=== PATIENT | male | born 1980 | race Hispanic/Latino ===

== ENCOUNTER → 2019-01-23 | Day surgery (SDC) | payer BC ==
[2019-01-20 16:05] LABS: ANION GAP 12.8 mmol/L (8-16); BLOOD UREA NITROGEN 16 mg/dL (7-26); BUN/CREATININE RATIO 20 (6-25); CALCIUM 9.1 mg/dL (8.4-10.2); CARBON DIOXIDE 22 mmol/L (22-29); CHLORIDE 106 mmol/L (98-107); EST GLOMERULAR FILTRATION RATE > 60 ML/MIN (60-); GLUCOSE 213 mg/dL (74-118); POTASSIUM 3.8 mmol/L (3.5-5.1); SODIUM 137 mmol/L (136-145)
[~2019-01-23] MED LIST: ACETAMINOPHEN/CODEINE 300MG - 30MG TAB ONE; ASA325 PO; BACITRACIN ZINC 15 GM OINT ONE; BUPIVACAINE 0.25% 30ML SDV INJ ONE; CEFAZOLIN SOD 1 GM/NS 50ML 50 ML IV ONE; DEXAMETHASONE SOD PHOS INJ 4 MG/ML VIAL ONE; FENTANYL CITRATE/PF 100MCG/2 ML INJ ONE; JANUVIA100 MG PO; KETOROLAC TROMETHAMINE 30 MG/ML VIAL ONE; LEVP SQ; LIDOCAINE HCL 2% LOCAL INJ 5 ML SDV VIAL INJ ONE; LSNP2.5 PO; METFORMIN HCL500 MG PO; MIDAZOLAM HCL 2 MG/2 ML VIAL ONE; NORCO 5-325 TA1 EACH PO; ONDANSETRON HCL INJ 2MG/ML 2ML 2 MG/ML VIAL ONE; PROPOFOL IV EMULSION 10 MG/ML 20 ML VIAL ONE; SEVOFLURANE INHAL SOLN 250 ML PEN BTL ONE; TRICOR48 MG PO; TRULICITY INJ; ZOCOR20 MG PO
[2019-01-23 08:25] VITALS: BP 132/89
--- NOTE | 2019-01-25 05:48 | Operative Report ---
DATE OF PROCEDURE: 01/23/2019 SURGEON: Simon Martinez MD PREOPERATIVE DIAGNOSES: 1. Severe phimosis. 2. Balanitis recurrent. 3. Penile adhesions. POSTOPERATIVE DIAGNOSES: 1. Severe phimosis. 2. Balanitis recurrent. 3. Penile adhesions. PROCEDURE: Dorsal-slit circumcision. ANESTHESIA: General. ESTIMATED BLOOD LOSS: Minimal. COMPLICATIONS: None. INDICATION: Mr. Roger is a 38-year-old male patient, who is morbidly obese with a buried penis, who presents with the inability to retract his foreskin, poorly controlled diabetes, recurrent balanitis and infection. He and I discussed his options of nothing or slit circumcision and should he heal from this with resolution of the chronic infection stage to full circumcision. Unfortunately, He has poor diabetes control, morbid obesity with a buried penis. He can possibly perform a circumcision after weight loss. PROCEDURE IN DETAIL: After informed consent was obtained, the patient was taken to the operative suite, was given prophylactic antibiotics. The mons had to retracted. The foreskin was marked in the dorsum after creating an artifical erection at the base of the glans. A transverse line was made with the marker at the base of the glans.This line was clamped. This was then divided. Meticulous hemostasis was obtained in a bipolar fashion with electrocautery. The wound edges were then closed with a running chronic gut stitch. The foreskin could retract to and fro. The inner prepuce was prepped with Betadine. The wound was dressed with neosporin ointment. The patient was awakened by Anesthesia and transported to the recovery room in excellent condition. All sponge and instrument counts were correct x2. Simon Martinez MD ES/MODL /[id number]
== END | disposition home or self-care (01) ==
LOC: OR 05:00
PROVIDERS: ATTEND Urology
DX: N47.1 Phimosis (principal); N39.0 Urinary tract infection, site not specified; R31.29 Other microscopic hematuria; I10 Essential (primary) hypertension; N48.1 Balanitis; E66.01 Morbid (severe) obesity due to excess calories; E11.65 Type 2 diabetes mellitus with hyperglycemia; Z79.84 Long term (current) use of oral hypoglycemic drugs
CPT/HCPCS: 36415 ×2; 54150; 80048; 82948; 93005; J0690; J1100; J1885; J2001; J2250; J2405; J2704